=== PATIENT | female | born 1980 | race Caucasian/White ===

== ENCOUNTER 2016-09-25 12:12 | Emergency (ER) | payer MEDICAID ==
--- NOTE | 2016-09-25 12:35 | Emergency Department Record ---
History of Present Illness - General Chief Complaint: Fever Stated Complaint: NAUSEA/COUGH/FEVER Time Seen by Provider: 09/25/16 12:34 Source: Patient Mode of Arrival: Ambulatory Limitations: No limitations - History of Present Illness Initial Comments: The patient is here due to a 2 day hx of cough, weakness, body aches, and chest and back pain with coughing. She denies any significant sputum production and did have a lot of dysuria and urinary hesitancy last evening. She denies any SOB , RIKKI, MOY, abdominal pain, or vomiting. The patient possibly has a hx of Lupus but takes no medicines for it. She also has been very fatigued. MD Complaint: Malaise Onset/Timin -: Days(s) Temperature Source: Oral Associated Symptoms: Chest pain, Cough Treatments Prior to Arrival: None - Related Data Home Medications Medication Instructions Recorded Confirmed Last Taken Dextroamphetamine/Amphetamine 25 mg PO DAILY 09/11/15 09/25/16 09/23/16 [Dextroamp-Amphet ER 25 mg Cap] Previous Rx's Medication Instructions Recorded Azithromycin [Zithromax] 250 mg PO DAILY #4 tab 09/25/16 Allergies Allergy/AdvReac Type Severity Reaction Status Date / Time ibuprofen [From Motrin] Allergy ABDOMINAL Verified 09/11/15 18:22 PAIN Travel Screening - Travel/Exposure Within Last 30 Days Have you traveled within the last 30 days?: No - Travel/Exposure Within Last Year Have you traveled outside the [place] in the last year?: No - Additonal Travel Details Have you been exposed to anyone with a communicable illness?: No - Travel Symptoms Symptom Screening: None Review of Systems Constitutional: Reports: Malaise. Denies: Chills, Fever Eyes: Denies: Eye discharge ENT: Reports: Congestion Respiratory: Reports: Cough. Denies: Dyspnea Cardiovascular: Denies: Arrhythmia Endocrine: Reports: Fatigue Gastrointestinal: Denies: Abdominal pain Genitourinary: Denies: Dysuria Musculoskeletal: Denies: Arthralgia Skin: Denies: Bruising Past Medical History - SOCIAL HISTORY Smoking Status: Light tobacco smoker (<10/day) Alcohol Use: Rare Drug Use: None - RESPIRATORY Hx Respiratory Disorders: No - CARDIOVASCULAR Hx Cardio Disorders: No - NEURO Hx Neuro Disorders: Yes Comment:: Lupus - GI Hx GI Disorders: No - Hx Genitourinary Disorders: No - ENDOCRINE Hx Endocrine Disorders: No - MUSCULOSKELETAL Hx Musculoskeletal Disorders: No - PSYCH Hx Psych Problems: No - HEMATOLOGY/ONCOLOGY Hx Hematology/Oncology Disorders: No Family Medical History Any Significant Family History?: Yes Hx Cancer: Grandparents Hx Heart Disease: Grandparents Hx HTN: Mother Physical Exam - General General Appearance: Alert, Oriented x3, Cooperative, No acute distress - Head Head exam: Atraumatic, Normocephalic, Normal inspection - Eye Eye exam: Normal appearance, PERRL - ENT Throat exam: Normal inspection. negative: Tonsillar erythema, Tonsillar exudate - Neck Neck exam: Normal inspection, Full ROM. negative: Lymphadenopathy, Meningismus (The neck is very supple.), Tenderness - Respiratory Respiratory exam: Normal lung sounds bilaterally, Chest wall tenderness (There is tenderness to the bilateraly T4-8 costochondral joints.). negative: Decreased breath sounds, Respiratory distress, Wheezes - Cardiovascular Cardiovascular Exam: Regular rate, Normal rhythm, Normal heart sounds - GI/Abdominal GI/Abdominal exam: Soft, Normal bowel sounds. negative: Guarding, Rebound, Rigid, Tenderness - Extremities Extremities exam: Normal inspection, Full ROM, Normal capillary refill. negative: Tenderness - Back Back exam: Reports: Normal inspection, Paraspinal tenderness (There is bilateral thoracic spine paraspinal tenderness to palpation which does bring on the patients back pain with coughing.). Denies: Vertebral tenderness Course Vital Signs 09/25/16 12:21 Temperature 98.9 F Pulse Rate 75 Respiratory 18 Rate Blood Pressure 105/68 Pulse Ox 100 - Reevaluation(s) Reevaluation #1: The patient is doing very well at this time. She feels much better after the toradol. 09/25/16 14:00 Reevaluation #2: The patient is doing well and is resting comfortably with less coughing and no CP or SOB presently. I did discuss the lab results with her and the fact that her WBC is low at 1.9. She has no fever here and we have rechecked it multiple times. I did explain to her that the xrays are all normal but due to the cough and sputum we will treat her with Zithromax. I also did discuss with her that I do believe she most likely has a viral URI but due to the hx of Lupus and low WBC we will treat her with an oral Abx. She is to see her PCP tomorrow to have the WBC rechecked. 09/25/16 15:18 Medical Decision Making - Data Complexity MDM Data: Labs Ordered and/or Reviewed, X-Ray Ordered and/or Reviewed, EKG Ordered and/or Reviewed - Lab Data Result diagrams: 09/25/16 12:50 09/25/16 12:50 - EKG Data -: EKG Interpreted by Me EKG: No Acute Changes, Normal EKG - Radiology Data Radiology results: Report reviewed (CXR: Neg. Chest CT: Neg for any acute abnormality.) Disposition Disposition: Discharge Clinical Impression: Upper respiratory infection, acute Disposition: Home, Self-Care Condition: (1) Good Instructions: Upper Respiratory Infection (ED) Additional Instructions: Please continue the Zithromax tomorrow and take your home Tylenol or [place] for pain. Please see your PCP tomorrow for recheck and to also recheck your WBC. Please return to the ER for any increased cough, fever, pain or vomiting. Prescriptions: Azithromycin [Zithromax] 250 mg PO DAILY #4 tab Forms: Patient Portal Access Time of Disposition: 15:21
[2016-09-25] MEDS ORDERED: ONDANSETRON 4 MG ODT TABLET SL ONE (12:40)
[2016-09-25] MEDS ORDERED: KETOROLAC 30 MG/ML VIAL IM ONE (12:59)
[2016-09-25 13:00] LABS: HEMATOCRIT 39.8 % (35.0-47.0); HEMOGLOBIN 13.7 gm/dl (11.6-16.0); MEAN CELL VOLUME 91.9 fl (81-97); MEAN CORPUSCULAR HEMOGLOBIN 31.6 pg (27-33); MEAN CORPUSCULAR HGB CONC 34.4 g/dl (32-36); PLATELET COUNT 163 K/uL (130-400); RED BLOOD COUNT 4.33 M/uL (3.80-5.40); RED CELL DISTRIBUTION WIDTH 11.7 % (11.5-14.5); WHITE BLOOD COUNT W/O DIFF 1.9 K/uL (4.2-12.2)
[2016-09-25 13:10] LABS: PLATELET ESTIMATE NORMAL (NORMAL)
[2016-09-25 13:15] LABS: ALB/GLOB RATIO 1.5 (1.1-1.8); ALBUMIN 4.1 gm/dL (3.5-5.0); ALKALINE PHOSPHATASE 42 U/L (38-126); ALT/SGPT 52 U/L (9-52); AST/SGOT 39 U/L (14-36); BILIRUBIN,TOTAL 0.21 mg/dL (0.2-1.3); BLOOD UREA NITROGEN 13 mg/dL (7-17); C-REACTIVE PROTEIN 1.5 mg/dL (0.0-0.9); CREATININE 0.8 mg/dL (0.52-1.04); EST GLOMERULAR FILTRATION RATE > 60 ml/min; GLUCOSE,RANDOM 81 mg/dL (70-110); TOTAL PROTEIN 6.8 gm/dL (6.3-8.2)
[2016-09-25 13:38] LABS: CREATINE PHOSPHOKINASE 64 U/L (30-135)
[2016-09-25 13:49] LABS: URINE APPEARANCE CLEAR; URINE BILIRUBIN NEGATIVE (NEGATIVE); URINE BLOOD TRACE-I (NEGATIVE); URINE COLOR YELLOW; URINE GLUCOSE (UA) NEGATIVE (NEGATIVE); URINE KETONE 40 mg/dL (NEGATIVE); URINE LEUKOCYTE ESTERASE NEGATIVE (NEGATIVE); URINE NITRITE NEGATIVE (NEGATIVE); URINE PROTEIN TRACE (NEGATIVE); URINE UROBILINOGEN 0.2 E.U./dL (0.20 - 1.00)
[2016-09-25 13:51] LABS: CKMB 0.5 ug/L (0-6)
[2016-09-25 13:52] LABS: TROPONIN I < 0.012 ng/mL (0.00-0.034)
[2016-09-25 13:59] LABS: URINE BACTERIA NONE SEEN; URINE MUCUS 1
[2016-09-25] MEDS ORDERED: 0.9 % SODIUM CHLORIDE 1,000 ML BAG IV ONE (14:01)
[2016-09-25] MEDS ORDERED: HYDROMORPHONE HCL 1 MG/ML CPJ IVP ONE (14:59)
[2016-09-25] MEDS ORDERED: AZITHROMYCIN 500 MG TABLET PO ONE (15:12)
--- NOTE | 2016-09-29 10:08 | RADIOLOGY REPORT ---
DATE: 09/25/2016. EXAM: TWO-VIEW CHEST. HISTORY: Difficulty breathing. TECHNIQUE: Frontal and lateral views of the chest were performed. FINDINGS: Heart size is normal. Lung kirk are clear. Osseus structures are normal. IMPRESSION: NEGATIVE CHEST EXAMINATION. JOB NUMBER: [id number] MTDD
--- NOTE | 2016-09-29 10:45 | CT ANGIOGRAM REPORT ---
EXAM: CTA OF THE CHEST WITH CONTRAST HISTORY: NAUSEA, COUGH, FEVER. TECHNIQUE: CTA of the chest was performed after intravenous administration of 100 ml of Omnipaque 350 contrast material. Comparison: Plain film radiograph performed the same day. FINDINGS: The mediastinal vasculature enhances normally. No mass or filling defect to suggest pulmonary embolism. The thoracic aorta appears normal. No mediastinal or hilar lymphadenopathy. The heart and pericardium appears normal. The lung kirk are clear. The visualized upper abdominal structures are normal. IMPRESSION: 1. NO CTA FINDINGS SUGGESTIVE OF PULMONARY EMBOLISM. 2. NO ACUTE INTRATHORACIC DISEASE PROCESS. JOB NUMBER: [id number] MTDD
== END 2016-09-25 15:49 | disposition home or self-care (01) ==
LOC: ER 12:12
DX: J06.9 Acute upper respiratory infection, unspecified (principal); R05 Cough; R53.83 Other fatigue; R07.9 Chest pain, unspecified; R11.0 Nausea
CPT/HCPCS: 99284 ×2; 96374; 96372; 82550; 85651; 86140; 82553; 84484; 80053; 81001; 81025; 85379; 85027; 71020; 71275; 93005; 93010; Q9967; J1885; J1170; J7030